=== PATIENT | female | born 1995 | race Caucasian/White ===

== ENCOUNTER 2019-02-03 21:47 | Observation (INO) | payer OTHER ==
[~2019-02-03] VITALS: Ht 152.4 cm; Wt 87.9 kg
[~2019-02-03 21:47] MED LIST: PREN1TAB49 PO
[2019-02-03] MEDS ORDERED: OXYTOCIN 30 UNITS/LR 500 ML IV PRN (23:30)
[2019-02-03] MEDS ORDERED: LIDOCAINE 1% (MPF) 30 ML INJ INJ PRN (23:30)
[2019-02-03] MEDS ORDERED: MISOPROSTOL 200 MCG TAB PR PRN (23:30)
[2019-02-03] MEDS ORDERED: BUTORPHANOL 2 MG INJ IV PRN (23:30)
[2019-02-03] MEDS ORDERED: METHYLERGONOVINE 0.2 MG INJ IM PRN (23:30)
[2019-02-03] MEDS ORDERED: CARBOPROST 250 MCG INJ IM PRN (23:30)
[2019-02-03] MEDS ORDERED: OXYTOCIN 30 UNITS/LR 500 ML IV SCH ×2 (23:30)
[2019-02-03] MEDS ORDERED: IBUPROFEN 600 MG TAB PO PRN (23:30)
--- NOTE | 2019-02-03 23:46 | HP ---
Date/Time of Note Date/Time of Note DATE: 02/03/19 TIME: 23:41 OB - History Hx of Present Free Text/Dictation February 03, 2019 : 3 Para: 1 Abnormal Ultrasound Findings: 23-year-old 3 para 1 with IUP at 38 weeks and 3 days presents with complaint of shortness of breath and gasping for air when she lays flat since last night. Patient reports could not be able to go to sleep due to shortness of breath when she lays down flat. She also reports at that time she will feeling cough. She denies any fever or chills. She denies any sputum. She denies any history of cardiac problem in the past. She denies any leaking of fluid vaginal bleeding or contractions. She was noted to have some contraction on the monitor but she is not feeling them. Patient denies any complication during her antepartum course. Denies any history of cardiology problem in the past. Reports have nausea and vomiting and after nausea she has GERD symptoms. Past medical history: None Past surgical history: None Allergy history NKDA Social history: Does not smoke drink alcohol or use any drugs Past Family/Social History * Past Medical, Surgical, Family and Obstetric Histories reviewed from chart. OB Admission Exam Physical Exam HEENT: WNL Lungs: Clear Abdomen: WNL Extremities: Edema (1+ bilateral nonpitting edema) Reflexes: Normal Cervical Dilatation: Fingertip Effacement: 25% Station: -3 Membranes: Intact Heart Rate: 120's Accelerations: Accelerations Present Decelerations: Variable Decelerations Varibility: Marked Contractions on Admission: < 5 Minutes Apart Intensity: Moderate Last 72 hourBlood Glucose During NST one episode of subtle deceleration down to 1 10-100 with marked variability noted but overall the rest of the tracing appears to be reactive and reassuring OB Assessment/Plan Other Assessment: IUP at 38 weeks and 3 days Shortness of breath, orthopnea Cannot rule out cardiac origin No clear evidence of pulmonary problem Contractions, patient does not appear to be in labor. Does not feel contractions Occasional episodes of category 2 tracing Patient will be admitted for observation Consider work-up for orthopnea rule out cardiac problem. EKG, CBC, BMP, BNP Consider internal medicine consultation Biophysical profile and JUAN CARLOS Patient will be admitted to antepartum for continuous monitoring and evaluation Plan of care discussed with patient and with IHSAN YANEZ MD February 03, 2019 23:46
[2019-02-04 00:11] VITALS: Ht 152.4 cm; Wt 87.9 kg
[2019-02-04 00:37] VITALS: BP 110/86; PULSE 115; RESP 18
[2019-02-04] MEDS: LACTATED RINGER'S 1,000 ML IV SCH ×2 (01:12→09:07)
--- NOTE | 2019-02-04 03:02 | TRIAGE ---
OB Triage Datetime Report Generated by CPN: 02/04/2019 03:01 Datetime: 02/04/2019 02:58 Monitor Mode: External Monitor Mode: External US Datetime: 02/04/2019 02:56 Comments: MATERNAL REPOSITIOING, MONITOR LOSS OF CONTACT Datetime: 02/04/2019 02:35 Labor Evaluation Frequency: 1.5-3.5 Monitor Mode: External Duration (sec)2399: 40-80 Quality: Mild Pattern: Normal: <= 5 Contractions in 10 Minutes Resting Tone [place]: Relaxed Heart Rate FHR Baseline Rate: 135 Monitor Mode: External US Variability: Moderate 6-25 bpm Accelerations: 15X15 Decelerations: None Category: Category I Datetime: 02/04/2019 02:23 Comments: occasional monitor loss of contact d/t maternal repositioning _ movement Datetime: 02/04/2019 01:35 Labor Evaluation Frequency: 1-4 Monitor Mode: External Quality: Mild Pattern: Normal: <= 5 Contractions in 10 Minutes Resting Tone [place]: Relaxed Heart Rate FHR Baseline Rate: 135 Monitor Mode: External US Variability: Moderate 6-25 bpm Accelerations: 15X15 Decelerations: None Category: Category I Pain Assessment Pain Scale: 0 Pain Presence: None/Denies Pain Type: N/A Datetime: 02/04/2019 01:23 Monitor Mode: External US Datetime: 02/04/2019 01:20 Comments: maternal repositioned _ sitting up; monitor loss of contact _ tracing maternal HR (verifi ed via pulse ox) Datetime: 02/04/2019 01:05 Time of Arrival: 02/03/2019 23:56 EGA: 38.3 Arrived By: Ambulatory Movement: Present Rupture of Membranes: Denies Vaginal Discharge: Denies Recent Sexual Intercouse: Denies Abdominal Trauma: Not Applicable Datetime: 02/04/2019 00:37 Maternal Assessment Level of Consciousness: Fully Conscious DTR's/Clonus: DTRs 2+; No Clonus Headache: Denies Blurred Vision: No Respiratory Effort: Unlabored; Regular Rhythm; Equal Expansion Breath Sounds, Left: Clear and Equal Breath Sounds, Right: Clear and Equal Nausea/Vomiting: Denies RUQ Epigastric Pain: Denies Facial Edema: None Temperature Route: Oral Fall Risk Assessment History of Falling: (0) No Secondary Diagnosis: (0) No Ambulatory Aid: (0) Bedrest/Nurse Assist Gait: (0) Normal/Bedrest/Immobile Mental Status: (0) Oriented to Own Ability Pain Assessment Pain Scale: 7 Pain Presence: Intermittent Pain Type: Sharp Pain Location: Right Groin; Left Groin Pain Relief Measures: Comfort Measures Pain Assessment Comments: Pt denies any pain currently, she states she only has a very quick sharp pain in the groin area when she coughs Datetime: 02/04/2019 00:36 Monitor Mode: External Monitor Mode: External US Datetime: 02/04/2019 00:32 Stage of : Labor Comments: MONITOR ON PT IN FBC8 Datetime: 02/04/2019 00:23 Labor Evaluation Frequency: 1-4 Monitor Mode: External Duration (sec)2399: 50-70 Quality: Mild Pattern: Normal: <= 5 Contractions in 10 Minutes Resting Tone [place]: Relaxed Heart Rate FHR Baseline Rate: 145 Monitor Mode: External US Variability: Moderate 6-25 bpm Accelerations: 15X15 Decelerations: None Category: Category I Datetime: 02/03/2019 23:20 Labor Evaluation Frequency: 1-4 Monitor Mode: External Duration (sec)2399: 60-90 Quality: Mild Pattern: Normal: <= 5 Contractions in 10 Minutes Resting Tone [place]: Relaxed Heart Rate FHR Baseline Rate: 150 Monitor Mode: External US Variability: Moderate 6-25 bpm Accelerations: 15X15 Decelerations: None Category: Category I Datetime: 02/03/2019 22:25 Stage of : OB Triage Labor Evaluation Frequency: 1.5-4 Monitor Mode: External Duration (sec)2399: 60-90 Quality: Mild Pattern: Normal: <= 5 Contractions in 10 Minutes Resting Tone [place]: Relaxed Heart Rate FHR Baseline Rate: 135 Monitor Mode: External US Variability: Moderate 6-25 bpm Accelerations: 15X15 Decelerations: None Category: Category I Datetime: 02/03/2019 22:13 Vaginal Exam Dilatation (cms): 1.0 Effacement (%): 20 Station: -3 Exam By: Munira AUSTIN Vaginal Bleeding: None Cervix, Consistency: Firm Cervix, Position: Posterior Datetime: 02/03/2019 22:00 Stage of : OB Triage Time of Arrival: 02/03/2019 21:40 EGA: 38.3 Arrived By: Ambulatory Arrived From: Home Chief Complaint: COUGH X1 DAY ABDOMINAL PAIN Movement: Present Contractions: Regular Contractions: 2-3 Rupture of Membranes: Denies Vaginal Bleeding: None Vaginal Discharge: Denies Recent Sexual Intercouse: Denies Abdominal Trauma: Not Applicable Patient Complaints: Cough; Shortness of Breath; Other Additional Patient Complaints: SHORTNESS OF BREATH Time Provider Notified: 02/03/2019 22:20 Provider Notified: DR. ENCINAS Initial Plan: EFM, SVE, CALL OB Maternal Assessment Level of Consciousness: Fully Conscious DTR's/Clonus: DTRs 2+; No Clonus Headache: Denies Blurred Vision: No Respiratory Effort: Unlabored; Regular Rhythm; Equal Expansion Breath Sounds, Left: Clear and Equal Breath Sounds, Right: Clear and Equal Nausea/Vomiting: Denies RUQ Epigastric Pain: Denies Lower Extremities Edema: None Degree: None Upper Extremities Edema: None Degree: None Facial Edema: None Temperature Route: Oral Fall Risk Assessment History of Falling: (0) No Secondary Diagnosis: (0) No Ambulatory Aid: (0) Bedrest/Nurse Assist IV Therapy: (0) No Gait: (0) Normal/Bedrest/Immobile Mental Status: (0) Oriented to Own Ability Fall Score: 0 Fall Risk Score Definition: No Risk: No action required Pain Assessment Pain Scale: 7 Pain Presence: Intermittent Pain Type: Pressure Pain Location: Abdomen Pain Assessment Comments: PT REPORTED FEELING INTENSE ABDOMINAL PAIN WHEN SHE COUGHS.
--- NOTE | 2019-02-04 04:47 | CONS ---
Assessment/Plan Assessment/Plan Hospital Course (Demo Recall) This is a 23-year-old female who was admitted to labor and delivery #1 left-sided chest pressure with dyspnea: Initial troponin and CK-MB are negative. However her symptoms of tachycardia desaturation as well as her questionable signs on EKG of S1 Q 3 and T3 are concerning for possible pulmonary embolism. Will proceed with a CTA of the chest to rule out PE. I did discuss t he risks and benefits of the CT of the chest with the patient in regards to her . Patient is okay to proceed with the understanding that the benefits outweigh the risks. We will repeat another set of cardiac enzymes. We will check an echocardiogram as well. Consider cardiology/pulmonology consultation if indicated. Venous Doppler ultrasounds are pending #2 microcytic anemia: Continue prenatals, consider ferrous sulfate Thank you for this consultation we will follow with you. Consultation Date/Type/Reason Admit Date/Time February 03, 2019 at 23:30 Date of Consultation: February 04, 2019 Type of Consult Medical Reason for Consultation Shortness of breath, chest pressure Requesting Provider: IHSAN POTTS MD Date/Time of Note DATE: 02/04/19 TIME: 04:24 Hx of Present Illness Reason for consult: Shortness of breath, chest pressure This is a 23-year-old female G3, P1 at 38 weeks and 4 days who reports shortness of breath and chest pressure. Patient reports that she has been having chest pressure for the last few weeks mainly when she lays flat. She does report that this can happen when she is awake or asleep. When she is sleeping though she does report that she at times has difficulty breathing and she wakes up and she needs to sit up and take a couple deep breaths and. She denies any chest pain. During patient's hospital course she was noted to be tachycardic to the 115 rang e. She also was noted to be desaturating on room air to the 90s as well. She does report that she has had a slight cough over the last few days. But denies any fevers. Allergies: NKDA Medications: None Const: As per HPI Eyes : No pain discharge or redness or change in visual acuity ENT: No pain, sore throat, congestion, congestion, dysphagia or discharge Respiratory: As per HPI Cardiovascular: No chest pain, palpitation, PND, or edema GI : no change in appetite, abdominal pain, nausea, vomiting, diarrhea, constipation, or change in the color his stool Genitourinary: No dysuria, hematuria, flank pain , discharge or CVA tenderness Musculoskeletal: No joint pain, back pain, neck pain, restricted range of motion in neck or joints Skin: No rash, bruising or hives Neuro: No headache, dizziness, syncope, seizure, focal weakness Endocrine: No polyuria, polydipsia, temperature intolerance Psych: No hallucination, depression, anxiety or suicidal ideation Past Medical History History of ectopic , induced Home Meds Reported Medications Vits W-Ca,Fe,Fa(<1MG) () 1 Tab Tablet, 1 TAB PO DAILY 01/08/13 Medications Current Medications Lactated Ringer's 1,000 ml @ 125 mls/hr Q8H IV Last administered on 02/04/19at 01:12; Admin Dose 125 MLS/HR; Start 02/03/19 at 23:23 Butorphanol Tartrate (Stadol) 2 mg Q2H PRN IV .PAIN SCALE 6-10; Start 02/03/19 at 23:30 Lidocaine (Xylocaine 1% (Mpf)) 30 ml ONCE PRN INJ .EPISIOTOMY; Start 02/03/19 at 23:30 Oxytocin/Lactated Ringer's 500 ml @ 500 mls/hr ONCE POST IV ; Start 02/03/19 at 23:30 Oxytocin/Lactated Ringer's 500 ml @ 125 mls/hr POST IV ; Start 02/03/19 at 23:30 Ibuprofen (Motrin) 600 mg ONCE PRN PO .PAIN 1-5; Start 02/03/19 at 23:30 Oxytocin/Lactated Ringer's 500 ml @ 0 mls/hr ONCE PRN IV .VAGINAL BLEEDING; Start 02/03/19 at 23:30 Methylergonovine Maleate (Methergine) 0.2 mg ONCE PRN IM .VAGINAL BLEEDING; Start 02/03/19 at 23:30 Carboprost Tromethamine (Hemabate) 250 mcg ONCE PRN IM .VAGINAL BLEEDING; Start 02/03/19 at 23:30 Misoprostol (Cytotec) 1,000 mcg ONCE PRN [place] .VAGINAL BLEEDING; Start 02/03/19 at 23:30 Allergies: Coded Allergies: No Known Drug Allergies (Verified Allergy, Unknown, 02/04/19) Past Surgical History Left ovarian cyst biopsy Family History Significant Family History: no pertinent family hx Social History Alcohol Use: none Smoking Status: Never smoker Drug Use: none Exam/Review of Systems Exam Vitals Vital Signs Date Temp Pulse Resp B/P (MAP) Pulse Ox O2 O2 Flow FiO2 Time Delivery Rate 02/04/19 98.2 115 18 110/86 Room Air 00:37 (94) Intake and Output 02/03/19 02/03/19 02/04/19 1515:00 23:00 07:00 OutputOutput Total 200 ml BalanceBalance -200 ml Exam General: Patient is a pleasant female currently lying in bed in no acute distress, I did observe the patient while lying flat and she did become tachyc ardic with some slight desaturation in her oxygenation on room air. HEENT: Atraumatic, normocephalic. The pupils are equal, round and reactive. Extraocular motor are intact Neck: Supple with full range of motion. No rigidity or meningismus Chest: Nontender to palpation Lungs: Clear to auscultation bilaterally no crackles rales or wheezing, nonlabored breathing Heart: Sinus tachycardia Abdomen: Gravid, soft , nontender, nondistended , bowel sounds are present. No guarding no rebound tenderness , No masses or organomegaly. No costovertebral temporal angle mass Extremities: Normal to inspection, no edema no cyanosis Neurologic: Normal mental status, speech normal, cranial nerves II through XII are intact, motor and sensory are intact, no focal weakness Additional Comments EKG: Normal sinus at 100 bpm, questionable S1 Q 3 T3, right axis deviation Results Result Diagram: 02/04/19 0001 02/04/19 0001 Results 24hrs Laboratory Tests Test 02/03/19 23:30 02/04/19 00:01 Urine Color YELLOW Urine Clarity CLEAR Urine pH 6.0 Urine Specific [place] 1.013 Urine Ketones TRACE A Urine Nitrite NEGATIVE Urine Bilirubin NEGATIVE Urine Urobilinogen NEGATIVE Urine Leukocyte Esterase NEGATIVE Urine Microscopic RBC 0 Urine Microscopic WBC 0 Urine Bacteria FEW A Urine Mucus FEW A Urine Hemoglobin 1+ H Urine Glucose NEGATIVE Urine Total Protein NEGATIVE White Blood Count 11.9 H Red Blood Count 5.03 Hemoglobin 12.0 Hematocrit 37.8 Mean Corpuscular Volume 75.1 L Mean Corpuscular Hemoglobin 23.9 L Mean Corpuscular Hemoglobin Concent 31.7 L Red Cell Distribution Width 14.7 H Platelet Count 349 Mean Platelet Volume 9.8 Immature Granulocytes % 1.300 H Neutrophils % 67.6 Lymphocytes % 21.8 Monocytes % 7.4 Eosinophils % 1.5 Basophils % 0.4 Nucleated Red Blood Cells % 0.2 H Immature Granulocytes # 0.160 H Neutrophils # 8.0 H Lymphocytes # 2.6 Monocytes # 0.9 Eosinophils # 0.2 Basophils # 0.1 Nucleated Red Blood Cells # 0.0 Prothrombin Time 11.4 L Prothrombin Time Ratio 0.9 INR International Normalized Ratio 0.82 Activated Partial Thromboplast Time 28.3 Sodium Level 137 Potassium Level 4.0 Chloride Level 107 Carbon Dioxide Level 21 Anion Gap 9 Blood Urea Nitrogen 7 Creatinine 0.43 L Est Glomerular Filtrat Rate mL/min > 60 Glucose Level 76 Calcium Level 9.7 Creatine Kinase 50 Creatine Kinase Index 1.5 Creatinine Kinase MB (Mass) 0.77 Troponin I < 0.012 B-Type Natriuretic Peptide 22 Hepatitis B Surface Antigen NEGATIVE Medications Medication Current Medications Lactated Ringer's 1,000 ml @ 125 mls/hr Q8H IV Last administered on 02/04/19at 01:12; Admin Dose 125 MLS/HR; Start 02/03/19 at 23:23 Butorphanol Tartrate (Stadol) 2 mg Q2H PRN IV .PAIN SCALE 6-10; Start 02/03/19 at 23:30 Lidocaine (Xylocaine 1% (Mpf)) 30 ml ONCE PRN INJ .EPISIOTOMY; Start 02/03/19 at 23:30 Oxytocin/Lactated Ringer's 500 ml @ 500 mls/hr ONCE POST IV ; Start 02/03/19 at 23:30 Oxytocin/Lactated Ringer's 500 ml @ 125 mls/hr POST IV ; Start 02/03/19 at 23:30 Ibuprofen (Motrin) 600 mg ONCE PRN PO .PAIN 1-5; Start 02/03/19 at 23:30 Oxytocin/Lactated Ringer's 500 ml @ 0 mls/hr ONCE PRN IV .VAGINAL BLEEDING; Start 02/03/19 at 23:30 Methylergonovine Maleate (Methergine) 0.2 mg ONCE PRN IM .VAGINAL BLEEDING; Start 02/03/19 at 23:30 Carboprost Tromethamine (Hemabate) 250 mcg ONCE PRN IM .VAGINAL BLEEDING; Start 02/03/19 at 23:30 Misoprostol (Cytotec) 1,000 mcg ONCE PRN OR .VAGINAL BLEEDING; Start 02/03/19 at 23:30 RICK OLIVAS February 04, 2019 04:37
[2019-02-04] MEDS ORDERED: SOD CHLORIDE 0.9% 100 ML ONE (05:53)
[2019-02-04] MEDS ORDERED: IOHEXOL 300MG/ML 150 ML BTL ONE (05:53)
--- NOTE | 2019-02-04 14:02 | DS ---
Date/Time of Note Date/Time of Note DATE: 02/04/19 TIME: 14:00 Obstetrical Discharge Record Final Diagnosis Final Diagnosis: Term not delivered Other Final Diagnosis Cold syndrome Condition on Discharge Physical Assessment Last Vitals: See nurse's notes Voiding: Yes Bowel Movement: Yes Breast: Soft, non-tender, Filling Fundus: Other () Abdomen and Incision: Abdomen is gravid fundal height is 37 Calf Tenderness: No Patient Condition: Good BEVERLY ORTEZ MD February 04, 2019 14:01
--- NOTE | 2019-02-04 14:02 | QN ---
Documentation Comment Patient symptoms mostly are resolved Currently complaint of cold syndrome Will follow as outpatient BEVERLY ORTEZ MD February 04, 2019 14:02
--- NOTE | 2019-02-04 14:03 | PD.PPDC ---
RAILROAD DETECTIVE Discharge Instruction Provider Information Physician Information 23-year-old female with cold symptoms Diagnosis [id number] Final Diagnosis: [id number] "Syndrome Condition [id number] Patient Condition: Bbipd8s Good Diet [id number] Diet: Ayznk2q Resume Regular Diet Activity/Restrictions [id number] Activity: Zozzg3h Normal Activity May Shower Follow-up Follow-up with Physician: 1, Week/Weeks (In clinic) BEVERLY ORTEZ MD February 04, 2019 14:03
--- NOTE | 2019-02-05 12:40 | RADRPT ---
Vent Rate: 100 bpm RR Interval: 0 msec DE Interval: 138 msec QRS Duration: 66 msec QT Interval: 334 msec QTC Interval: 430 msec P-R-T [place]: 37 - 99 - 10 degrees Normal sinus rhythm Rightward axis Borderline ECG Electronically Signed By: Seun Hernandez
== END 2019-02-04 14:13 | disposition home or self-care (01) ==
LOC: OBT 21:47 → L-D 21:47 → OBT 23:30 → L-D 23:30 → UNDOADMIN 23:30 → UNDODISIN 02-04 14:00
PROVIDERS: ADMIT Obstetrics & Gynecology; ATTEND Obstetrics & Gynecology
DX: O26.893 Other specified pregnancy related conditions, third trimester (principal); J00 Acute nasopharyngitis [common cold]; O99.013 Anemia complicating pregnancy, third trimester; Z3A.38 38 weeks gestation of pregnancy
CPT/HCPCS: 71275; 76818; 80048; 81001; 82550; 82553; 83880; 84484; 85025; 85610; 85730; 86592; 86850; 86900; 86901; 87340; 93005; 93970; J7120; Q9967; Z7500; Z7610; 99217; G0378; G0463

== ENCOUNTER 2019-02-15 09:00 | Inpatient (IN) | payer OTHER ==
[~2019-02-15] VITALS: Ht 152.4 cm; Wt 90.3 kg
[2019-02-15 09:21] VITALS: Ht 152.4 cm; Wt 90.3 kg
[2019-02-15] MEDS ORDERED: LIDOCAINE 1% (MPF) 30 ML INJ INJ PRN (09:30)
[2019-02-15] MEDS ORDERED: OXYTOCIN 30 UNITS/LR 500 ML IV PRN (09:30)
[2019-02-15] MEDS ORDERED: IBUPROFEN 600 MG TAB PO PRN (09:30)
[2019-02-15] MEDS ORDERED: METHYLERGONOVINE 0.2 MG INJ IM PRN (09:30)
[2019-02-15] MEDS ORDERED: MISOPROSTOL 200 MCG TAB PR PRN (09:30)
[2019-02-15] MEDS ORDERED: BUTORPHANOL 2 MG INJ IV PRN (09:30)
[2019-02-15] MEDS ORDERED: OXYTOCIN 30 UNITS/LR 500 ML IV SCH ×2 (09:30)
[2019-02-15] MEDS ORDERED: CARBOPROST 250 MCG INJ IM PRN (09:30)
[2019-02-15] MEDS: LACTATED RINGER'S 1,000 ML IV SCH ×2 (09:48→15:30)
[2019-02-15] MEDS: MISOPROSTOL 50 MCG CAPSULE PO SCH ×2 (10:56→15:30)
[2019-02-15] MEDS ORDERED: MISOPROSTOL 50 MCG CAPSULE PO SCH (13:00)
--- NOTE | 2019-02-15 13:20 | HP ---
Date/Time of Note Date/Time of Note DATE: 02/15/19 TIME: 13:12 OB - History Hx of Present Free Text/Dictation 23-year-old female 3 para 140+ weeks gestation admitted for induction of labor Last Menstrual Period: Apr 25, 2019 Estimated Due Date: February 14, 2019 : 3 Para: 1 Spontaneous : 1 Care: Good Care Ultrasounds: Normal mid trimester US Obstetrical Complications: None Medical Complications: None Past Family/Social History * Past Medical, Surgical, Family and Obstetric Histories reviewed from chart. Blood Type: O+ Rubella: immune RPR/VDRL: Negative GBS Status: Negative HBsAG: Negative OB Admission Exam Physical Exam HEENT: WNL Heart: Rhythm Normal Lungs: Clear, Equal Abdomen: WNL Extremities: Normal Reflexes: Normal Cervical Dilatation: 1cm Effacement: 50% Station: -3 Membranes: Intact Heart Rate: 140's Accelerations: Accelerations Present Decelerations: No Decelerations Varibility: Marked Contractions on Admission: None Last 72 hours Lab Results CBC & BMP 02/15/19 09:30 OB Assessment/Plan Reason for admission: induction of labor Other Assessment: Term gestation Other plan: Start induction using Cytotec BEVERLY ORTEZ MD February 15, 2019 13:20
[2019-02-16] MEDS: LACTATED RINGER'S 1,000 ML IV SCH ×4 (00:23→22:43)
[2019-02-16] MEDS: MISOPROSTOL 50 MCG CAPSULE PO SCH ×2 (02:38→06:42)
[2019-02-16] MEDS ORDERED: OXYTOCIN 30 UNITS/LR 500 ML IV SCH (18:00)
[2019-02-16] MEDS ORDERED: FENTAnyl 2MCG/ML-ROPIV 0.2% 100 ML ONE (22:39)
[2019-02-16] MEDS ORDERED: FENTAnyl 50 MCG/ML VIAL ONE (22:39)
--- NOTE | 2019-02-16 22:41 | PREAC ---
Date/Time of Note Date/Time of Note DATE: 02/16/19 TIME: 22:40 Anesthesia Eval and Record Evaluation Time Pre-Procedure Interview DATE: 02/16/19 TIME: 22:40 Age 23 Sex female NPO: Other (na) Preoperative diagnosis labor pain Planned procedure epidural Past Medical History Past Medical History: None Surgery & Anesthesia Issues No known issue Meds Anticoagulation: No Beta Lali within 24 hr: No Reason Beta Lali not given: Pt. not on B-Lali Reported Medications Vits W-Ca,Fe,Fa(<1MG) () 1 Tab Tablet, 1 TAB PO DAILY 01/08/13 Current Medications Lactated Ringer's 1,000 ml @ 125 mls/hr Q8H IV Last administered on 02/16/19at 18:30; Admin Dose 125 MLS/HR; Start 02/15/19 at 09:14 Butorphanol Tartrate (Stadol) 2 mg Q2H PRN IV .PAIN SCALE 6-10; Start 02/15/19 at 09:30 Lidocaine (Xylocaine 1% (Mpf)) 30 ml ONCE PRN INJ .EPISIOTOMY; Start 02/15/19 at 09:30 Oxytocin/Lactated Ringer's 500 ml @ 500 mls/hr ONCE POST IV ; Start 02/15/19 at 09:30 Oxytocin/Lactated Ringer's 500 ml @ 125 mls/hr POST IV ; Start 02/15/19 at 09:30 Ibuprofen (Motrin) 600 mg ONCE PRN PO .PAIN 1-5; Start 02/15/19 at 09:30 Oxytocin/Lactated Ringer's 500 ml @ 0 mls/hr ONCE PRN IV .VAGINAL BLEEDING; Start 02/15/19 at 09:30 Methylergonovine Maleate (Methergine) 0.2 mg ONCE PRN IM .VAGINAL BLEEDING; Start 02/15/19 at 09:30 Carboprost Tromethamine (Hemabate) 250 mcg ONCE PRN IM .VAGINAL BLEEDING; Start 02/15/19 at 09:30 Misoprostol (Cytotec) 1,000 mcg ONCE PRN [place] .VAGINAL BLEEDING; Start 02/15/19 at 09:30 Misoprostol (Cytotec 50 Mcg Capsule) 50 mcg Q4H PO Last administered on 02/16/19at 06:42; Admin Dose 50 MCG; Start 02/15/19 at 11:00 Oxytocin/Lactated Ringer's 500 ml @ 0 mls/hr FOR AUGMENTATION IV Last administe red on 02/16/19at 18:33; Admin Dose 1 MLS/HR; Start 02/16/19 at 18:00 Meds reviewed: Yes Allergies Coded Allergies: No Known Drug Allergies (Verified Allergy, Unknown, 02/04/19) Allergies Reviewed: Yes Labs/Studies Labs Reviewed: Reviewed by anesthesiologist Result Diagram: 02/15/19 8156 test: N/A Pre-procedure Exam Airway: Adequate mouth opening, Adequate thyromental dist Mallampati: Mallampati III Teeth: Normal Lung: Normal Heart: Normal ASA Physical Status ASA physical status: 2 Emergency: None Pre-operative Attestations Prior to commencing anesthesia and surgery, the patient was re-evaluated, there was verification of: *The patient's identity *The results of appropriate recent lab work and preoperative vital signs *The above evaluation not changing prior to induction *Anesthetic plan, risk benefits, alternative and complications discussed with patient/family; questions answered; patient/family understands, accepts and wishes to proceed. TERRI TURNER DO February 16, 2019 22:41
[2019-02-16] MEDS ORDERED: NALOXONE (0.4 MG/ML) INJ IV PRN (23:00)
[2019-02-17] MEDS: LACTATED RINGER'S 1,000 ML IV SCH ×2 (03:11→12:50)
[2019-02-17] MEDS: FENTAnyl 2MCG/ML-ROPIV 0.2% 100 ML BAG EPI SCH ×2 (06:11→12:55)
[2019-02-17] MEDS ORDERED: MINERAL OIL LIGHT 10 ML VIAL TOP ONE (06:30)
[2019-02-17] MEDS ORDERED: ACETAMINOPHEN 500 MG TAB PO STA (14:02)
[2019-02-17] MEDS ORDERED: KETOROLAC 30 MG INJ IV STA (14:02)
--- NOTE | 2019-02-17 14:02 | LDN ---
Date/Time of Note Date/Time of Note DATE: 02/17/19 TIME: 13:59 Delivery Summary Normal spontaneous vaginal delivery of a viable infant over intact perineum Shoulder dystocia was relieved by placing the patient in Irina position suprapubic pressure and Hunt maneuver Weeks of Gestation 40+ weeks Placenta Delivered: Spontaneously, Intact & Complete Meconium: Light Episiotomy: No Perineal laceration: 2 Laceration repair: Second-degree perineal laceration was repaired in layers using 2-0 Vicryl in the deeper layers and 2 chromic and superficial layer Anesthesia type: Epidural Estimated blood loss: 3 Sponge & Needle done & correct: Yes All needle counts correct: Yes Any foreign bodies felt in the: No Delivery Information Sex Sex: female Apgars 1 Minute: 7 5 Minute: 9 Suctioning Nose & mouth suctioned at natasha: Yes Delee suction performed: No Umbilical Cord Umbilical cord with: 3 Vessels Cord presentations: no nuchal cord Cord Blood was obtained: Yes Mother & Baby Disposition Disposition Mom & Baby to Maternity; Good: Yes (Mother and baby were recovered in good condition) Mom transferred to: Other (Maternity) Baby to NICU: No BEVERLY ORTEZ MD February 17, 2019 14:02
--- NOTE | 2019-02-17 14:28 | PAC ---
Date/Time of Note Date/Time of Note DATE: 02/17/19 TIME: 14:28 Post-Anesthesia Notes Post-Anesthesia Note Last documented vital signs 120/67 73 22 100% Activity: WNL Respiratory function: WNL Cardiovascular function: WNL Mental status: Baseline Pain reasonably controlled: Yes Hydration appropriate: Yes Nausea/Vomiting absent: Yes TERRI TURNER DO February 17, 2019 14:28
[2019-02-17 16:15] VITALS: BP 123/58; PULSE 95; RESP 18
[2019-02-17] MEDS ORDERED: ZOLPIDEM 5 MG TAB PO PRN (17:30)
[2019-02-17] MEDS ORDERED: LANOLIN HPA 1 PKT TOP PRN (17:30)
[2019-02-17] MEDS ORDERED: OXYTOCIN 30 UNITS/LR 500 ML IV PRN (17:30)
[2019-02-17] MEDS ORDERED: DIBUCAINE 1% 30 GM OINT TOP PRN (17:30)
[2019-02-17] MEDS ORDERED: METHYLERGONOVINE 0.2 MG INJ IM PRN (17:30)
[2019-02-17] MEDS ORDERED: BENZOCAINE 20% 56 ML SPRAY TOP PRN (17:30)
[2019-02-17] MEDS ORDERED: HYDROCODONE/APAP (5/325) TAB PO PRN ×2 (17:30)
[2019-02-17] MEDS ORDERED: MISOPROSTOL 200 MCG TAB PR PRN (17:30)
[2019-02-17] MEDS ORDERED: CARBOPROST 250 MCG INJ IM PRN (17:30)
[2019-02-17] MEDS: CEPHALEXIN 500 MG CAP PO SCH (17:34)
[2019-02-17] MEDS: WITCH HAZEL/GLYCERIN PAD PR PRN (17:34)
[2019-02-17] MEDS: LACTATED RINGER'S 1,000 ML IV* SCH (17:38)
[2019-02-17] MEDS: IBUPROFEN 600 MG TAB PO SCH (18:00)
[2019-02-17 20:00] VITALS: BP 116/54; PULSE 111; RESP 18
[2019-02-17] MEDS: MAGNESIUM HYDROXIDE 30ML CUP PO SCH (21:42)
[2019-02-17] MEDS: SENNA/DOCUSATE NA (8.6MG/50MG) TAB PO SCH (21:42)
[2019-02-18] MEDS: CEPHALEXIN 500 MG CAP PO SCH ×4 (01:00→18:07)
[2019-02-18] MEDS: IBUPROFEN 600 MG TAB PO SCH ×4 (01:01→18:33)
[2019-02-18] MEDS: LACTATED RINGER'S 1,000 ML IV* SCH (01:01)
[2019-02-18 04:00] VITALS: BP 105/59; RESP 18
[2019-02-18 08:00] VITALS: BP 106/60; PULSE 101; RESP 18
[2019-02-18] MEDS: MAGNESIUM HYDROXIDE 30ML CUP PO SCH ×2 (08:56→21:06)
[2019-02-18] MEDS: SENNA/DOCUSATE NA (8.6MG/50MG) TAB PO SCH ×2 (09:16→21:06)
[2019-02-18 12:00] VITALS: BP 111/56; PULSE 107; RESP 18
--- NOTE | 2019-02-18 14:41 | DS ---
Date/Time of Note Date/Time of Note Home today or next day DATE: 02/18/19 TIME: 14:40 Obstetrical Discharge Record Final Diagnosis Final Diagnosis: Term delivered Other Final Diagnosis Status post vaginal delivery Vaginal Delivery Obstetrical Delivery: Spontaneous, Laceration, Repaired Complications Augmentation: Yes Induction: Yes Condition on Discharge Physical Assessment Last Vitals: See nurse's notes Voiding: Yes Bowel Movement: Yes Breast: Soft, non-tender, Filling Fundus: Firm Abdomen and Incision: Abdomen is soft with firm fundus Episiotomy: Perineum is healing well and appears clean Calf Tenderness: No Patient Condition: Good BEVERLY ORTEZ MD February 18, 2019 14:41
[2019-02-18] MEDS ORDERED: IBUP-1542 PO (14:42)
--- NOTE | 2019-02-18 14:42 | PD.PPDC ---
ASSISTANT PROGRAM MANAGER Discharge Instruction Provider Information Physician Information 23-year-old female had vaginal delivery Diagnosis [id number] Final Diagnosis: Mtubn3y Status post vaginal delivery Condition [id number] Patient Condition: Psavk2a Good Diet [id number] Diet: Uccse0l Resume Regular Diet Activity/Restrictions [id number] Activity: Syerv1t Normal Activity May Shower [id number] Restrictions: [id number] Nothing in the Vagina [id number] Return to Work or School: [id number] Apr 05, 2019 Follow-up Follow-up with Physician: 2, 4, Week/Weeks Return to clinic for [id number] OB Instructions: Qiowl1v Breast Tenderness Depression Comment: Pelvic rest for 6 weeks BEVERLY ORTEZ MD February 18, 2019 14:42
[2019-02-18 15:40] VITALS: BP 112/61; PULSE 95; RESP 18
[2019-02-18 20:30] VITALS: BP 132/74; PULSE 108; RESP 18
[2019-02-19] MEDS: CEPHALEXIN 500 MG CAP PO SCH ×3 (00:27→12:24)
[2019-02-19] MEDS: IBUPROFEN 600 MG TAB PO SCH ×3 (00:27→12:24)
[2019-02-19] MEDS: WITCH HAZEL/GLYCERIN PAD PR PRN (03:44)
[2019-02-19 04:35] VITALS: BP 131/80; PULSE 86; RESP 18
[2019-02-19 08:30] VITALS: BP 108/73; PULSE 101; RESP 20
[2019-02-19] MEDS ORDERED: DIPHTH/TET/ACEL PERTUSS (ADULT) 0.5 ML VIAL IM* ONE (09:00)
[2019-02-19] MEDS: MAGNESIUM HYDROXIDE 30ML CUP PO SCH (09:00)
[2019-02-19] MEDS ORDERED: VARICELLA VACCINE LIVE/PF 1,350 UNIT/0.5 ML ML SC* ONE (09:00)
[2019-02-19] MEDS ORDERED: MEASLES,MUMPS,RUBELLA VACCINE INJ SC* ONE (09:00)
[2019-02-19] MEDS: SENNA/DOCUSATE NA (8.6MG/50MG) TAB PO SCH (09:00)
--- NOTE | 2019-02-20 14:40 | DELSUM ---
Delivery Summary A-C Datetime Report Generated by CPN: 02/20/2019 14:39 DELIVERY PERSONNEL Operations Section Manager: Matt, Swapna MATERNAL INFORMATION Delivery Anesthesia: Epidural Medications in Delivery: OXYTOCIN Delivery QBL (ml): 300 Placenta Cultured: No Maternal Complications: None LABOR SUMMARY EDC: 02/14/2019 00:00 No. Babies in Womb: 1 Attempted: No Labor Anesthesia: Epidural LABOR INFORMATION Reason for Induction: Postterm Onset of Labor: 02/16/2019 22:30 Complete Dilatation: 02/17/2019 12:16 Cervical Ripening Agents: Cytotec @ Oxytocin: Induction Group B Beta Strep: Negative Steroids Given: None Reason Steroids Not Administered: Not Applicable MEMBRANES Membranes Rupture Method: Artificial Rupture of Membranes: 02/17/2019 10:04 Length of Rupture (hr): 3.55 Amniotic Fluid Color: Light Meconium Amniotic Fluid Amount: Moderate Amniotic Fluid Odor: None STAGES OF LABOR Stage 1 hr: 13 Stage 1 min: 46 Stage 2 hr: 1 Stage 2 min: 21 Stage 3 hr: 0 Stage 3 min: 2 Total Time in Labor hr: 15 Total Time in Labor min: 9 VAGINAL DELIVERY Episiotomy: None Laceration Extension: Second Degree Laceration Type: Perineal Laceration Repair: Yes Initial Vag Sponge Count: 10 Final Vag Sponge Count: 10 Initial Vag Sharps Count: 3 Final Vag Sharps Count: 3 Sponge Count Correct: Yes; Vaginal Sweep Performed Sharps Count Correct: Yes BABY A INFORMATION Delivery Date/Time: 02/17/2019 13:37 Method of Delivery: Vaginal Born in Route : No : N/A Forceps: N/A Vacuum Extraction: N/A Shoulder Dystocia : No SHOULDER DYSTOCIA BABY A Delivery Date/Time: 02/17/2019 13:37 PRESENTATION/POSITION BABY A Presentation: Cephalic Cephalic Presentation: Vertex Vertex Position: Left Occipital Anterior Breech Presentation: N/A PLACENTA INFORMATION BABY A Placenta Delivery Time : 02/17/2019 13:39 Placenta Method of Delivery: Spontaneous Placenta Status: Delivered SCORES BABY A Heart Rate 1 min: >100 bpm Resp Effort 1 min: Slow, Irregular Reflex Irritability 1 min: Cough/Sneeze/Pulls Away Muscle Tone 1 min: Active Motion Color 1 min: Blue/Pale Resuscitation Effort 1 min: Tactile Stimulation SCORE 1 MIN: 7 Heart Rate 5 min: >100 bpm Resp Effort 5 min: Good Cry Reflex Irritability 5 min: Cough/Sneeze/Pulls Away Muscle Tone 5 min: Active Motion Color 5 min: Body [place], Extremit Blue SCORE 5 MIN: 9 INFANT INFORMATION BABY A Gestational Age at Delivery: 40.3 Gestational Status: Full Term- 39- 40.6 Weeks Outcome : Liveborn Infant Condition : Stable Sex: Female IDENTIFICATION/MEDS BABY A ID Band Number: [id number] ID Band Location: Right Leg; Left Arm Sensor Applied: Yes Sensor Number: [id number] Sensor Location : Cord Clamp Vitamin K Given : Not Given Erythromycin Given: Not Given WEIGHT/LENGTH BABY A Birthweight (gm): 4280 Weight (lb): 9 Weight (oz): 7 Infant Length (in): 21.00 Infant Length (cm): 53.34 CORD INFORMATION BABY A No. Cord Vessels: 3 Nuchal Cord : N/A Cord Blood Taken: Yes Infant Suction: Mouth; Nose ASSESSMENT BABY A Complications: Meconium Complications- Other: LIGHT MEC Physical Findings at Delivery: Within Normal Limits Respirations: Appears Normal Wireless Manager/ALS Called : No Care By: MAY RN Transferred To: [facility]
== END 2019-02-19 14:25 | disposition home or self-care (01) | DRG 807 ==
LOC: L-D 09:04 → PP1 02-17 16:05
PROVIDERS: ADMIT Obstetrics & Gynecology; ATTEND Obstetrics & Gynecology
PROC: 10E0XZZ Delivery of Products of Conception, External Approach (ICD-10-PCS; principal; 2019-02-17)
PROC: 0KQM0ZZ Repair Perineum Muscle, Open Approach (ICD-10-PCS; 2019-02-17)
DX: O48.0 Post-term pregnancy (principal); O70.1 Second degree perineal laceration during delivery; O66.0 Obstructed labor due to shoulder dystocia; Z37.0 Single live birth; Z3A.40 40 weeks gestation of pregnancy
CPT/HCPCS: 62322; 76816; 80307; 85025; 85610; 85730; 86592; 86850; 86900; 86901; 87340; 90716; 99464; J1885; J2590; J3010; J7120